=== PATIENT | female | born 1965 | race American Indian/Alaskan Native ===

== ENCOUNTER 2016-07-29 08:54 | Emergency (ER) | payer BC ==
[2016-07-29 09:03] VITALS: BMI 29.2
[2016-07-29 09:10] VITALS: O2SAT 100
--- NOTE | 2016-07-29 09:23 | C.PDOC ---
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 Time Seen by Provider: 07/29/16 09:12 Chief Complaint (Nursing): Lower Extremity Problem/Injury Past Medical History Vital Signs: Last Vital Signs Temp 98.7 F 07/29/16 09:05 Pulse 67 07/29/16 09:05 Resp 20 07/29/16 09:05 BP 125/85 07/29/16 09:05 Pulse Ox 100 07/29/16 09:38 - Medical History PMH: Gall Bladder Disease Surgical History: Cholecystectomy Denies: Pacemaker - [facility] Procedures ENDOSC POLYPECTOMY OF LG INTEST (01/30/15) LAPAROSCOPIC CHOLECYSTECTOMY (07/30/14) Family History: States: Other (nc) - Social History Hx Tobacco Use: Yes Hx Alcohol Use: No Hx Substance Use: No - Immunization History Hx Tetanus Toxoid Vaccination: No Hx Influenza Vaccination: No Hx Pneumococcal Vaccination: No Review Of Systems Constitutional: Negative for: Fever Respiratory: Negative for: Shortness of Breath Gastrointestinal: Negative for: Vomiting Musculoskeletal: Negative for: Neck Pain Neurological: Negative for: Weakness, Numbness, Headache Physical Exam - Physical Exam Appears: Well, Non-toxic, No Acute Distress Respiratory: No Accessory Muscle Use Extremity: Normal ROM, Tenderness (right mid calf), No Deformity, No Swelling, Other (r ankle and knee nl strength/rom and non-tender) Pulses: Right Dorsalis Pedis: Normal Neurological/Psych: Normal Motor, Normal Sensation, Other (no focal deficits) ED Course And Treatment O2 Sat by Pulse Oximetry: 100 Medical Decision Making Medical Decision Making: xr tib/fib- no acute fracture ronda wrap crutches nsaids ortho follow up Disposition - Disposition Disposition: HOME/ ROUTINE Disposition Time: 10:08 Condition: STABLE - Clinical Impression Clinical Impression: Gastrocnemius tear
[2016-07-29 11:12] VITALS: BP 135/82; PULSE 75; RESP 18; TEMP 98
--- NOTE | 2016-07-29 11:16 | RAD ---
Right tibia fibula History: Twisting injury. Findings: There is a linear lucency in the midportion of the tibial cortex on the medial aspect. Given no definite surrounding soft tissue swelling, this is likely to be a vascular channel. However, underlying incomplete fracture cannot be entirely excluded. Impression: Linear lucency in the medial tibial cortex in the mid segment is likely to be a vascular channel, however, underlying incomplete fracture cannot be entirely excluded. Repeat imaging should be obtained.
== END 2016-07-29 10:55 | disposition home or self-care (01) ==
LOC: C.ER 08:54
DX: S86.119A Strain of other muscle(s) and tendon(s) of posterior muscle group at lower leg level, unspecified leg, initial encounter (principal); W00.0XXA Fall on same level due to ice and snow, initial encounter; Y92.410 Unspecified street and highway as the place of occurrence of the external cause
CPT/HCPCS: 73590; 96372; 99285; J1885

== ENCOUNTER 2017-02-15 09:17 | Day surgery (SDC) | payer BC ==
[2017-02-15 09:38] VITALS: BMI 28.1
[2017-02-15] MEDS ORDERED: Lactated Ringer's 1,000 ML IV ONE (12:05)
[2017-02-15] MEDS ORDERED: Propofol 10 mg/ml Inj (20 ML) ONE ×2 (12:07→12:16)
[2017-02-15] MEDS ORDERED: Lactated Ringer's 500 ML IV SCH (12:30)
[2017-02-15 12:42] VITALS: TEMP 97
[2017-02-15 13:07] VITALS: PULSE 61; RESP 17; O2SAT 97
[2017-02-15 13:35] VITALS: BP 129/84
== END 2017-02-15 13:30 | disposition home or self-care (01) ==
LOC: C.ENDO 09:17
PROVIDERS: ATTEND Internal Medicine Gastroenterology
DX: K29.70 Gastritis, unspecified, without bleeding (principal); K20.9 Esophagitis, unspecified; K44.9 Diaphragmatic hernia without obstruction or gangrene; K31.7 Polyp of stomach and duodenum
CPT/HCPCS: 43239; 88305; 88312; 88313; 88342; J2001; J2704; J7120